=== PATIENT | female | born 1950 ===

== ENCOUNTER → 2019-02-18 | Outpatient (CLI) | payer OTHER ==
[~2019-02-18] VITALS: Ht 152.4 cm; Wt 113.4 kg
[~2019-02-18] MED LIST: ASPIRIN81 M2 PO; CELEXA40 MG PO; GLIPIZIDE 10 MG10 MG PO; MIRAPEX 0.250.25 M1 PO; MOBIC15 MG PO; NOVOLOG100 UNIT/1 SUBQ; OXYBUTYNIN ER 55 M1 PO; PRAVACHOL40 MG PO; PRINIVIL5 MG PO; PROAIR RESPICL90 MCG INH; TRAMADOL 50 MG50 MG PO; TRESIBA FL200 UNIT/1 SUBQ; TYLENOL EXTRA500 MG PO
[2019-02-18 13:57] VITALS: BP 182/77
--- NOTE | 2019-02-18 14:10 | NUR ---
Pain Clinic Assessment: 1. History of Osteoarthritis: BACK Left Lower Extremity History of Rheumatoid Arthritis: Not Applicable 2. Height: 5 ft. 0 in. 152.4 cm. Weight: 250.0 lb. oz. 113.400 kg. Patient's BMI: 48.8 3. Vital Signs: BP: 182/77 Pulse: 89 Resp: 16 Temp: 02 Sat: 100 ECG Mon: 4. Pain Intensity: 5 5. Fall Risk: Dizziness: N Needs help standing or walking: N Fallen in the last 3 months: N Fall risk comments: 6. Patient on Blood Thinner: None 7. History of Hypertension: Y 8. Opioid Therapy greater than 6 weeks: N Opiate Contract Signed: 9. Risk Assessment Tool Provided: LOW RISK 10. Functional Assessment Tool: 11. Recreational Drug Use: Never Drug Type: Tobacco Use: Never Smoker Tobacco Type: Amount or Packs/day: How Many Years: Alcohol Use: No Frequency: Quant:
--- NOTE | 2019-02-19 09:31 | HPC ---
[facility] [place] [address] PAIN MANAGEMENT CONSULTATION Name: ALICIA URIBE Room #: REG HELDER Alejandra#: [id number] Admission: 02/18/19 Attend Phys: Dedrick Gao DO Discharge: Date of : 50 Report #: [id number] THIS REPORT FOR: //name// CC: Dedrick Perez MD DATE OF SERVICE: 02/18/2019 CHIEF COMPLAINT: Low back pain, left lower extremity pain with paresthesias. HISTORY OF PRESENT ILLNESS: As you know, the patient is a 68-year-old female with longstanding history of low back pain with intermittent lower extremity symptoms. The patient indicates pain began in 1972. She indicates no injury or trauma that may have led to symptom occurrence. She states she has "just been putting up with it for years." She sought evaluation through her primary care physician, Dr. Dedrick Perez, who referred the patient to our clinic to discuss options for epidural injections. She underwent MRI of the lumbar spine examination dated 01/16/2019, which shows changes at the L4-L5 level consistent with the patient's distribution of pain. She was subsequently referred to our clinic to discuss epidural injection therapy. The patient indicates today pain is steady, describes the pain as aching, gnawing, numbness and tingling. Places current pain score at 8/10, daily average at 8/10, worst pain has been is 10/10. The patient states that bending and doing certain activities exacerbate symptoms, sitting and placing her feet in an upright position, tends to improve pain. She has been referred to our service to discuss treatment options for suspected lumbar radiculopathy. PAST MEDICAL HISTORY: 1. Class 3 morbid obesity. 2. Type 2 diabetes. 3. Hyperlipidemia. 4. Hypertension. 5. Restless leg syndrome. PAST SURGICAL HISTORY: Tubal ligation. SOCIAL HISTORY: The patient denies tobacco, alcohol, IV or illicit drug use. 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 She is not receiving workmen's compensation or she is trying to obtain disability benefits. She is unaccompanied at today's visit. She is not in litigation in regards to pain. REVIEW OF SYSTEMS: Positive for fatigue and weakness, frequent and recurrent headaches, wearing corrective eyewear, hearing loss with tinnitus, chronic sinus [address] [address] PAIN MANAGEMENT CONSULTATION Name: ALICIA URIBE Room #: REG HELDER Roberts#: [id number] Admission: 02/18/19 Attend Phys: Dedrick Gao DO Discharge: Date of : 50 Report #: [id number] problems with rhinitis, shortness of breath with walking or lying flat, painful bowel movements, constipation, frequent urination, nocturia, incontinence and dribbling to urine, varicose veins, chronic low back pain, morbid obesity. All other review of systems negative per 12-point review of systems, and those listed in history of present illness. Pain impact score 27/70 indicating moderate interference of daily activities secondary to pain. ALLERGIES: METFORMIN, MEPERIDINE. CURRENT MEDICATIONS: Tylenol Extra Strength 500 mg every 6 hours p.r.n. for pain, Tresiba 40 units at bedtime, tramadol 50 mg every 6 hours p.r.n. pain, albuterol 2 puffs q. 4 hours p.r.n., pravastatin 40 mg per day, Mirapex 0.25 mg p.o. at bedtime, oxybutynin XL 5 mg once a day, meloxicam 15 mg per day, lisinopril 5 mg per day, glipizide 10 mg twice a day, citalopram 40 mg once a day, NovoLog 12 units subcutaneous at noon, aspirin 81 mg per day. IMAGING: MRI of lumbar spine obtained 01/16/2019 shows L1-2 essentially unremarkable. L2-L3; there is body fusion noted with severe disk desiccation with mild posterior disk osteophyte ridging, no central canal stenosis, mild to moderate bilateral facet arthropathy. No significant neural foraminal stenosis. L3-4; severe disk desiccation, mild posterior disk osteophyte ridging and disk bulge, no significant overall central canal stenosis, [id number] bilateral facet arthrosis, no significant neural foraminal stenosis. L4-L5; grade 1 anterolisthesis of L4 and L5 approximately 6 mm. No evidence of pars defects. There is severe bilateral facet arthrosis, foraminal disk bulging and facet spurring resulting in moderate to severe medial left foraminal stenosis. Thickening of the ligamentum flavum and facet spurring in combination with anterolisthesis causes severe thecal sac stenosis. L5-S1; severe disk desiccation, small broad-based posterior disk bulge, no significant central canal stenosis, foraminal disk bulge abutting the undersurface of the exiting L5 nerve root bilaterally. PQRS: The patient has known arthritic changes of the lumbar spine, bilateral lower extremities and bilateral knees. No rheumatoid arthritis. She is placing pain intensity today 5/10. She is not a fall risk, has not had a fall in the last 3 months. She is not on blood thinners. She is treated for hypertension. She is not on chronic opioids and does have a low opioid addiction potential. Pain impact score 27/70, moderate interference of daily activities secondary to pain. PHYSICAL EXAMINATION: VITAL SIGNS: Blood pressure 182/77, pulse 89, respiratory rate 16 and unlabored. The patient is 100% on room air. Height 5 feet tall, weight 250 [facility] [address] [place] [address] PAIN MANAGEMENT CONSULTATION Name: ALICIA URIBE Room #: REG [facility].#: [id number] Admission: 02/18/19 Attend Phys: Dedrick Gao DO Discharge: Date of : 50 Report #: [id number] pounds and BMI calculated 48.8. GENERAL: Well-developed, well-nourished, well-hydrated, severely morbidly obese 68-year-old female, appears her stated age, placing current pain score 5/10. HEENT: Normocephalic, atraumatic. Pupils equal, round, reactive to light. Extraocular muscles are intact. Sclerae nonicteric without injection. NEUROLOGIC: Cranial nerves 2-12 grossly intact. Speech fluent. The patient deemed a good historian. LUNGS: Clear, no wheeze, rhonchi or rales. CARDIOVASCULAR: Regular though heart sounds are distant due to body habitus. ABDOMEN: Soft. Severely obese, normoactive bowel sounds. EXTREMITIES: Show no clubbing, no cyanosis, but 2+ nonpitting lower extremity edema. MUSCULOSKELETAL: Palpatory tenderness noted over the paraspinal musculature of lower lumbar spine. No spinous process tenderness. Seated straight leg raising negative. Supine straight leg raising positive. Foreign's test negative. Modified Gaenslen's positive for axial low back pain. Ankle clonus negative. Babinski is negative. Gait is antalgic. This appears to be favoring her left knee. Lumbar provocation testing is met with increased pain. ASSESSMENTS: 1. Chronic lumbar radiculopathy. 2. Severe spinal stenosis of the lumbar spine. 3. Neural foraminal stenosis of lumbar spine. 4. Displacement of lumbar intervertebral disk with radiculopathy. 5. Lumbosacral spondylosis with radiculopathy. 6. Severe facet arthropathy of the lumbar spine. 7. Lateral recess stenosis of the lumbar spine. 8. Chronic intractable pain. PLAN: 1. Based on today's physical exam and history the patient has provided, the description the patient uses in regards to pain as well as location of symptoms and it is waxing and waning features and distribution. The likely source of the patient's pain is of the central canal stenosis noted at the L4-5 level. She also has significant contribution of facet arthropathy pain. We discussed with the patient treatment options based on the findings of her MRI, which we reviewed with the patient over a 22-minute period of time. After this review of the MRI and how the symptoms correlate to the findings on physical exam and her reported distribution, we discussed the following options of treatment. 2. We discussed physical therapy, stretching exercises and strengthening techniques. We also discussed a concerted effort at weight loss. We discussed medication management with suggestions of neuropathic pain medications to be utilized to address neuropathic symptoms and nonsteroidal anti-inflammatory to address axial back pain, facet arthropathy. We discussed epidural injections, spinal cord stimulator therapy and ultimately surgical options. After reviewing the risks and benefits of all proposed treatment options, the patient chose to [address] [address] PAIN MANAGEMENT CONSULTATION Name: ALICIA URIBE Room #: REG HELDER Roberts#: [id number] Admission: 02/18/19 Attend Phys: Dedrick Gao DO Discharge: Date of : 50 Report #: [id number] move forward with a lumbar epidural injection under fluoroscopic guidance. 3. The patient was advised that third libertarian payer restrictions require that authorization be obtained before the patient could undergo a lumbar epidural injection under fluoroscopic guidance. Authorization will take somewhere between 4-7 working days, begin this process immediately, have the patient return to undergo the procedure once we have this authorization approved. The patient can contact our clinic at any time to confirm progress of our authorization process. We have made a tentative appointment back with the patient next week to undergo the procedure as this typically takes 4-7 working days. 4. We will send the patient for flexion and extension films of the lumbar spine. I wish to further evaluate the spondylolisthesis at the L4-5 level to confirm if there is any pathologic movement. We will contact the patient later today or first thing tomorrow with results. 5. No medication changes made at today's visit. We did make suggestions of treatment options for medications, which can be handled through her primary care physician if she wishes to initiate this type of therapy. At this point, we have made no changes in the treatment course from an oral standpoint. 6. We wish to thank Dr. Perez for the referral of the patient to our clinic. We will keep you apprised of response to treatment as we address lumbar radicular symptoms secondary to severe spinal stenosis at the L4-5 level. Again, we wish to thank you for the opportunity to see the patient in consultation. <ELECTRONICALLY SIGNED> By: Dedrick Gao DO 02/19/19 [id number] Dedrick Gao DO /nt
== END ==
LOC: PAIN 02-17 13:40 → RAD 06:59 → PAIN 06:59
DX: M47.26 Other spondylosis with radiculopathy, lumbar region (principal); M47.27 Other spondylosis with radiculopathy, lumbosacral region; M43.16 Spondylolisthesis, lumbar region; M41.86 Other forms of scoliosis, lumbar region; M48.061 Spinal stenosis, lumbar region without neurogenic claudication; M51.16 Intervertebral disc disorders with radiculopathy, lumbar region; G89.29 Other chronic pain; E11.9 Type 2 diabetes mellitus without complications; E78.5 Hyperlipidemia, unspecified; I10 Essential (primary) hypertension; G25.81 Restless legs syndrome; E66.01 Morbid (severe) obesity due to excess calories; Z68.42 Body mass index [BMI] 45.0-49.9, adult